=== PATIENT | male | born 1975 | race African-American/Black ===

== ENCOUNTER 2023-04-29 09:44 | Emergency (ER) | payer OTHER, SELFPAY ==
[~2023-04-29 09:44] MED LIST: Iopamidol 370 76% 50 ML VIAL FS ONE
[2023-04-29 11:14] LABS: #Eosinphils 0.2 10x3/uL (0.0-0.5); #Monocytes 0.6 10x3/uL (0.0-1.1); #Neutrophils 3.2 10x3/uL (1.5-8.4); %Basophils 0.6 % (0.0-2.0); %Eosinophils 4.7 % (0.0-6.0); %Lymphocytes 21.3 % (18.0-47.0); %Monocytes 11.3 % (0.0-10.0); %Neutrophils 61.9 % (40.0-75.0); Hematocrit 43.5 % (38.8-50.0); Hemoglobin 14.8 g/dL (13.5-17.5); Mean Corpuscular Hemoglobin 31.4 pg (27.0-33.0); Mean Corpuscular Volume 92.2 fl (81.2-95.1); Mean Platelet Volume 9.4 fl (7.4-10.4); Platelet Count 201 10x3/uL (150-450); RBC Distribution Width 13.2 % (11.5-14.5); Red Blood Cell (RBC) Count 4.72 10x6/uL (4.32-5.72); White Blood Cell (WBC) Count 5.1 10x3/uL (3.5-10.5)
[2023-04-29 11:18] LABS: Prothrombin Time 10.3 sec (9.5-12.1)
[2023-04-29 11:25] LABS: ALT (SGPT) 41 U/L (8-55); AST (SGOT) 46 U/L (5-34); Albumin 3.9 g/dL (3.5-5.0); Alkaline Phosphatase 141 U/L (40-110); Anion Gap 16 mmol/L (10-20); BUN (Urea Nitrogen) 13 mg/dL (8.9-20.6); Bilirubin, Total 0.7 mg/dL (0.2-1.2); Calc. Creatinine Clearance 0 mL/min (70-130); Calcium 8.9 mg/dL (7.8-10.44); Carbon Dioxide 24 mmol/L (22-29); Chloride 104 mmol/L (98-107); Estimated GFR 77; Globulin 2.7 g/dL (2.4-3.5); Glucose 97 mg/dL (70-105); Potassium 4.1 mmol/L (3.5-5.1); Protein, Total 6.6 g/dL (6.0-8.3); Sodium 140 mmol/L (136-145)
[2023-04-29 11:53] LABS: CKMB 1.5 ng/mL (0-6.6)
[2023-04-29] MEDS ORDERED: Acetaminophen 500 MG TAB ONE (12:08)
[2023-04-29] MEDS ORDERED: methylPREDNISolone Sod Succ 40 MG VIAL ONE (13:02)
[2023-04-29] MEDS ORDERED: Dexamethasone 10 MG/ML VIAL ONE (13:14)
== END 2023-04-30 03:06 | disposition home or self-care (01) ==
LOC: CSHERS 09:44
DX: R22.0 Localized swelling, mass and lump, head (principal); I10 Essential (primary) hypertension; G93.0 Cerebral cysts; Z87.891 Personal history of nicotine dependence
CPT/HCPCS: 36415; 70481; 80053; 82553; 84484; 85025; 85610; 85730; 93005; 93010; 96374; J1100; J2920; Q9967

== ENCOUNTER 2023-05-01 12:10 | Emergency (ER) | payer SELFPAY ==
[2023-05-01] MEDS ORDERED: HYDROcodone/Acetaminophen 10/325 mg Tablet ONE (15:59)
== END 2023-05-01 16:24 | disposition home or self-care (01) ==
LOC: CSHERS 12:10
DX: K08.89 Other specified disorders of teeth and supporting structures (principal); I10 Essential (primary) hypertension; Z87.891 Personal history of nicotine dependence
CPT/HCPCS: 99283